=== PATIENT | female | born 1995 | race Asian ===

== ENCOUNTER 2021-04-04 01:04 | Emergency (ER) | payer OTHER ==
[~2021-04-04] VITALS: Ht 165.1 cm; Wt 49.9 kg
--- NOTE | 2021-04-04 01:06 | NUR ---
PT BIB [facility] 89 C/O ETOH, PT ASLEEP AND UNABLE TO OBTAIN HISTORY, BREATHING EVEN NO SOB OR LABORED BREATHING, AFEBRILE. DR. HUSTON AT BEDSIDE, MSE IN PROGRESS.
[2021-04-04] MEDS ORDERED: IV NS 1000 ML 1,000 ML IV ONE (01:30)
--- NOTE | 2021-04-04 01:35 | NUR ---
LAB AT BEDSIDE.
[2021-04-04 01:50] LABS: CREATININE 0.6 mg/dL (0.6-1.3)
[2021-04-04 01:51] LABS: HEMATOCRIT 38.8 % (31.2-41.9); MEAN CORPUSCULAR HEMOGLOBIN 31.1 uug (24.7-32.8); MEAN CORPUSCULAR VOLUME 93.4 fL (75.5-95.3); PLATELET COUNT (AUTO) 261 K/uL (179-408)
--- NOTE | 2021-04-04 04:09 | NUR ---
Patient is resting comfortably in bed with eyes closed, breathing even and unlabored.
[2021-04-04] MEDS ORDERED: POTASSIUM BICARBONATE/CIT AC 25 MEQ TABLET.EFF PO ONE (06:30)
[2021-04-04] MEDS ORDERED: THIAMINE HCL 100 MG TABLET PO ONE (06:30)
--- NOTE | 2021-04-04 06:30 | NUR ---
PT NOTED TO BE AWAKE, ALERT, VSS. DENIES ANY PAIN/DISCOMFORT.
[2021-04-04] MEDS ORDERED: POTA10TA21 PO (06:40)
[2021-04-04] MEDS ORDERED: THIAMINE HCL 100 MG TABLET ONE (06:51)
[2021-04-04] MEDS ORDERED: POTASSIUM BICARBONATE/CIT AC 25 MEQ TABLET.EFF ONE (06:51)
--- NOTE | 2021-04-04 07:10 | NUR ---
Patient discharged to home in stable condition. A/O x4, no SOB or labored breathing, afebrile. Denies any pain/discomfort. Written and verbal after care instructions given. Patient verbalizes understanding of instructions. Stressed follow up or return to ER for worsening s/s. Steady gait.
[2021-04-04 07:11] VITALS: BP 82/55
== END 2021-04-04 07:05 | disposition home or self-care (01) ==
LOC: ER 01:08 → EDBD 01:08 → ER 07:05
DX: F10.121 Alcohol abuse with intoxication delirium (principal); Y90.8 Blood alcohol level of 240 mg/100 ml or more; R11.10 Vomiting, unspecified
CPT/HCPCS: 36415; 85025; A4663; G0480; J7030